=== PATIENT | female | born 2005 | race Caucasian/White ===

== ENCOUNTER 2024-05-10 10:03 | Day surgery (SDC) | payer OTHER ==
[2024-05-03 14:51] LABS: BASOPHILS # (AUTO) 0.1 X10'3 (0-0.2); BASOPHILS % (AUTO) 0.6 % (0-1); EOSINOPHILS % (AUTO) 9.5 % (0-6); LYMPHOCYTES # (AUTO) 3.8 X10'3 (1.1-4.8); LYMPHOCYTES % (AUTO) 36.6 % (21-51); MEAN CORPUSCULAR HEMOGLOBIN 30.5 PG (27.0-31.0); MEAN CORPUSCULAR HGB CONC 33.5 g/dL (33.0-36.5); MEAN CORPUSCULAR VOLUME 90.9 FL (78-98); MEAN PLATELET VOLUME 10.8 FL (7.4-10.4); MONOCYTES # (AUTO) 0.9 X10'3 (0-0.9); NEUTROPHILS # (AUTO) 4.5 X10'3 (1.8-7.7); NEUTROPHILS % (AUTO) 44.3 % (42-75); PRE OP HEMATOCRIT 43.7 % (35.0-45.0); PRE OP HEMOGLOBIN 14.7 g/dL (12.0-16.0); PRE OP PLATELET COUNT 210 X10'3 (140-440); PRE OP WHITE BLOOD COUNT 10.3 10'3 (4.8-10.8); RED BLOOD COUNT 4.81 X10'6 (4.20-5.60); RED CELL DISTRIBUTION WIDTH 13.3 % (11.5-14.5)
[2024-05-03 14:59] LABS: HCG SERUM QL NEGATIVE
[2024-05-03 15:04] LABS: ALBUMIN/GLOBULIN RATIO 0.9 (1.1-1.5); ALKALINE PHOSPHATASE 102 IU/L (20-180); BLOOD UREA NITROGEN 11 MG/DL (7-18); BUN/CREATININE RATIO 13.9 (10.0-20.0); CALCIUM 9.1 MG/DL (8.5-10.1); CHLORIDE 103 MMOL/L (99-107); CREATININE 0.79 MG/DL (0.40-0.90); PRE OP ALT 25 U/L (30-65); PRE OP ANION GAP 9 (8-16); PRE OP AST 13 U/L (10-37); PRE OP BILIRUB, TOTAL 0.5 MG/DL (0.0-1.0); PRE OP GLUCOSE 90 MG/DL (70-104); PRE OP SODIUM 138 MMOL/L (135-145); TOTAL CARBON DIOXIDE 25.9 MMOL/L (24-32); TOTAL PROTEIN 8.3 G/DL (6.4-8.2); eGFR > 90 ML/MIN
[2024-05-10] VITALS (8 sets, daily range): BP systolic 105–128; BP diastolic 63–77; PULSE 65–109; RESP 10–22; TEMP 98; O2SAT 95–100
[~2024-05-10] VITALS: Ht 160 cm; Wt 70.6 kg
[2024-05-10] MEDS: cefazolin 2gm/D5W 100mL 100 ML IV ONE (05:30)
[~2024-05-10 10:03] MED LIST: FLUO-167 PO; IBUP-862 PO
[2024-05-10] MEDS: ringers solution, lacted 1,000 ML IV SCH (10:42)
[2024-05-10] MEDS: famotidine 20mg tablet PO ONE (10:42)
[2024-05-10] MEDS ORDERED: bacitracin 15gm ointment TP ONE (13:27)
[2024-05-10] MEDS ORDERED: BUPIVAcaine 2.5mg/ml inj 50ml vial (contains preservative) ONE (13:27)
[2024-05-10] MEDS ORDERED: sevoflurane 250ml liquid IH ONE (13:51)
[2024-05-10] MEDS ORDERED: midazolam 1 mg/ML 2ml injection ONE (13:54)
[2024-05-10] MEDS ORDERED: fentaNYL/PF 50MCG/1 ML 2ML syringe ONE (14:04)
[2024-05-10] MEDS: BUPIVAcaine 2.5mg/ml inj 50ml vial (contains preservative) SQ ONE (14:09)
[2024-05-10] MEDS ORDERED: propofol inj 20 ML IV ONE ×2 (14:10)
[2024-05-10] MEDS ORDERED: LIDOcaine 1%/PF 5ML 10 MG/ML VIAL ONE (14:10)
[2024-05-10] MEDS ORDERED: ondansetron/PF 4mg/2ml inj ONE (14:12)
[2024-05-10] MEDS ORDERED: ondansetron/PF 4mg/2ml inj IV PRN (14:20)
[2024-05-10] MEDS ORDERED: proCHLORperazine 10 MG/2 ml inj IV PRN (14:20)
[2024-05-10] MEDS ORDERED: HYDROmorphone/PF 0.2 MG/ML SYRINGE IV PRN (14:20)
[2024-05-10] MEDS ORDERED: ringers solution, lacted 1,000 ML IV SCH (14:20)
[2024-05-10] MEDS ORDERED: oxyCODONE IR 5mg (immed. release) tablet PO ONE ×2 (14:55→15:15)
[2024-05-10] MEDS: fentaNYL/PF 50MCG/1 ML 2ML syringe IV PRN (14:56)
[2024-05-10] MEDS: acetaminophen 1,000mg/100ml IV 100 ML IV ONE (15:02)
[2024-05-10] MEDS: oxyCODONE/APAP 10/325mg tablet PO STA (15:24)
== END 2024-05-10 15:56 | disposition home or self-care (01) ==
LOC: PRE-OP 10:03
PROVIDERS: ATTEND Podiatrist Foot & Ankle Surgery
DX: Q66.89 Other specified congenital deformities of feet (principal); F32.A Depression, unspecified; G43.909 Migraine, unspecified, not intractable, without status migrainosus; Z79.1 Long term (current) use of non-steroidal anti-inflammatories (NSAID); Z79.899 Other long term (current) drug therapy; Z98.890 Other specified postprocedural states
CPT/HCPCS: 28116; 73620; 80053; 82948; 84703; 85025; A6222; J0131; J0690; J2250; J2405; J2704; J3010; J3490; J7030; J7120; Z7506; Z7512; 76000; A4215; A4618; A6253; A6449; A7000